=== PATIENT | female | born 1965 | race Caucasian/White ===

== ENCOUNTER 2017-09-13 20:38 | Emergency (ER) | payer MEDICARE, OTHER ==
[2017-09-13] MEDS ORDERED: Tetracaine HCl/PF 0.5% 4 ML Bottle EYELF ONE (21:11)
[2017-09-13] MEDS ORDERED: Bacitracin/Neomycin/Polymyxin B Ophth Oint 3.5 GM Tube ONE (21:22)
--- NOTE | 2017-09-13 21:31 | EDM.PDOC ---
ED HPI GENERAL MEDICAL PROBLEM - General Chief Complaint: Eye Problems Stated Complaint: left eye scratchy, just had prk surgery 1 wk ago Time Seen by Provider: 09/13/17 21:00 Source of Information: Reports: Patient History Limitations: Reports: No Limitations - History of Present Illness INITIAL COMMENTS - FREE TEXT/NARRATIVE: Patient is a 52-year-old who underwent PRK surgery about one week ago today came into the ER with chief complaint of scratchy pain on the cornea stating that it felt painful at this time we went ahead and admitted her to the ER and examined her under fluorescein and Pontocaine exam reveal corneal scratch at 11: 00 we went ahead and examined the eyelids no foreign bodies were seen we irrigated with normal saline apply Neosporin ointment ophthalmic to the eye and patient placed the patch patient will be sent home she is to return if not better Onset: Sudden Duration: Hour(s):, Getting Worse Location: Reports: Face (I) Quality: Reports: Ache, Burning, Throbbing Severity: Moderate Improves with: Reports: Medication Worsens with: Reports: None Context: Reports: Trauma Associated Symptoms: Reports: No Other Symptoms Treatments DOCUMENT COORDINATOR: Reports: NSAIDS (Naproxen) - Related Data Allergies Allergy/AdvReac Type Severity Reaction Status Date / Time levofloxacin [From Levaquin] Allergy Rash Verified 09/13/17 20:42 Penicillins Allergy Anaphylactic Verified 09/13/17 20:41 Shock ED ROS GENERAL - Review of Systems Review Of Systems: See Below Constitutional: Reports: No Symptoms HEENT: Reports: Eye Pain Respiratory: Reports: No Symptoms Cardiovascular: Reports: No Symptoms Endocrine: Reports: No Symptoms GI/Abdominal: Reports: No Symptoms : Reports: No Symptoms Musculoskeletal: Reports: No Symptoms Skin: Reports: No Symptoms Neurological: Reports: No Symptoms ED EXAM GENERAL W FULL EYE - Physical Exam Exam: See Below Exam Limited By: No Limitations General Appearance: Alert, WD/WN, Anxious, Moderate Distress Eye Exam: Left Eye: Corneal Abrasion (11:00 superficial) Eyelids: Left: Lid Everted for Exam, Bilateral: Normal Appearance Cornea Exam: Left: Corneal Abrasion, Examined with Flourescein Extraocular Movements: Bilateral: Intact Pupils: Normal Accommodation Pupillary Size: Bilateral: 2 mm Pupillary Reaction: Bilateral: Brisk Ears: Normal External Exam, Normal Canal, Hearing Grossly Normal, Normal TMs Nose: Normal Inspection, Normal Mucosa, No Blood Throat/Mouth: Normal Inspection, Normal Lips, Normal Teeth, Normal Gums, Normal Oropharynx, Normal Voice, No Airway Compromise Head: Atraumatic, Normocephalic Neck: Normal Inspection, Supple, Non-Tender, Full Range of Motion Respiratory/Chest: No Respiratory Distress, Lungs Clear, Normal Breath Sounds, No Accessory Muscle Use, Chest Non-Tender Cardiovascular: Normal Peripheral Pulses, Regular Rate, Rhythm, No Edema, No Gallop, No JVD, No Murmur, No Rub GI/Abdominal: Normal Bowel Sounds, Soft, Non-Tender, No Organomegaly, No Distention, No Abnormal Bruit, No Mass (Female) Exam: Deferred Rectal (Female) Exam: Deferred Back Exam: Normal Inspection, Full Range of Motion, NT Extremities: Normal Inspection, Normal Range of Motion, Non-Tender, Normal Capillary Refill, No Pedal Edema Neurological: Alert, Oriented, CN II-XII Intact, Normal Cognition, Normal Gait, Normal Reflexes, No Motor/Sensory Deficits Psychiatric: Normal Affect, Normal Mood Skin Exam: Warm, Dry, Intact, Normal Color, No Rash Lymphatic: No Adenopathy Course - Orders/Labs/Meds Meds: Medications Discontinued Medications Generic Name Dose Route Start Last Admin Trade Name Freq PRN Reason Stop Dose Admin Neomycin/Polymyxin/Bacitracin Confirm 09/13/17 21:22 Neosporin Ophth Oint Administered 09/13/17 21:23 Dose 3.5 gm .ROUTE .STK-MED ONE Tetracaine HCl 1 ml 09/13/17 21:11 Tetracaine 0.5% Steri-Unit Libra EYELF 09/13/17 21:12 ASDIRECTED ONE Departure - Departure Time of Disposition: 21:33 Disposition: Home, Self-Care 01 Condition: Good Clinical Impression: Corneal abrasion - Discharge Information Instructions: Corneal Abrasion Referrals: Sanaz Barrios PA [Primary Care Provider] - Care Plan Goals: We'll send patient home with Neosporin apply a 1 cm strip 4 times a day return to Te[facility] Greco or myself if not better
== END 2017-09-13 21:50 | disposition home or self-care (01) ==
LOC: LL.ED 20:38
DX: S05.02XA Injury of conjunctiva and corneal abrasion without foreign body, left eye, initial encounter (principal); Z88.0 Allergy status to penicillin; Z88.1 Allergy status to other antibiotic agents; X58.XXXA Exposure to other specified factors, initial encounter
CPT/HCPCS: 99283; A9270; 99282

== ENCOUNTER 2017-10-29 23:06 | Emergency (ER) | payer MEDICARE, OTHER ==
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
[2017-10-29] MEDS: Bacitracin/Neomycin/Polymyxin B Oint 0.9 GM U/D Packet TOP ONE (23:51)
[2017-10-29 23:59] LABS: CHLORIDE,CL 101 mmol/L (98-107); SODIUM,NA 137 mmol/L (136-145)
[2017-10-30] MEDS: Diphtheria,Pertussis(Acell),Tetanus Vaccine 0.5 ML SDV IM ONE (00:25)
== END 2017-10-30 01:05 | disposition home or self-care (01) ==
LOC: LL.ED 23:06
DX: S22.32XA Fracture of one rib, left side, initial encounter for closed fracture (principal); S51.011A Laceration without foreign body of right elbow, initial encounter; S61.214A Laceration without foreign body of right ring finger without damage to nail, initial encounter; S00.03XA Contusion of scalp, initial encounter; J44.9 Chronic obstructive pulmonary disease, unspecified; E66.9 Obesity, unspecified; F17.210 Nicotine dependence, cigarettes, uncomplicated; R91.8 Other nonspecific abnormal finding of lung field; M19.90 Unspecified osteoarthritis, unspecified site; F41.8 Other specified anxiety disorders; Z88.1 Allergy status to other antibiotic agents; Z88.0 Allergy status to penicillin; Z71.6 Tobacco abuse counseling; W11.XXXA Fall on and from ladder, initial encounter
CPT/HCPCS: 36415; 71046; 71120; 73030-LT; 80053; 83605; 85025; 90471; 90715; 99284; G0480

== ENCOUNTER 2022-05-31 17:20 | Emergency (ER) | payer MEDICARE, OTHER ==
[2022-05-31] MEDS ORDERED: Clindamycin HCl 150 MG Cap PO STA (18:22)
[2022-05-31 18:34] LABS: ANION GAP 6.4 meq/L (7-15); CHLORIDE,CL 103 mmol/L (98-107); SODIUM,NA 141 mmol/L (136-145)
[2022-05-31 18:35] LABS: ESTIMATED GFR 77 mL/min (>=60)
[2022-05-31] MEDS ORDERED: Take Home: Clindamycin HCl 150 MG, 12 Cap Pack PO ONE (18:52)
== END 2022-05-31 19:50 | disposition home or self-care (01) ==
LOC: LL.ED 17:20
DX: K04.7 Periapical abscess without sinus (principal); J44.9 Chronic obstructive pulmonary disease, unspecified; F17.210 Nicotine dependence, cigarettes, uncomplicated; E66.9 Obesity, unspecified; Z68.32 Body mass index [BMI] 32.0-32.9, adult; Z88.0 Allergy status to penicillin; Z88.1 Allergy status to other antibiotic agents
CPT/HCPCS: 36415; 80053; 85025; 86140; 99283; A9270